=== PATIENT | female | born 1995 | race American Indian/Alaskan Native ===

== ENCOUNTER 2018-05-26 05:46 | Inpatient (IN) | payer MEDICAID ==
[2018-05-26] MEDS ORDERED: SUBLIMAZE IV ONE (07:41)
[2018-05-26] MEDS ORDERED: ZOFRAN IV ONE (07:41)
[2018-05-26] MEDS ORDERED: NORMODYNE IV ONE (07:43)
--- NOTE | 2018-05-26 07:49 | Emergency Department Report ---
HPI - General Chief Complaint: High BP Time Seen by Provider: 05/26/18 07:30 - HPI HPI: Room 24 The patient is a 23-year-old female presenting with a chief complaint of hypertension and headache. Patient is status post vaginal delivery 05/22/2018. Patient states her blood pressure has been elevated while in the hospital. The patient was discharged yesterday but given strong warnings to return should she develop headache or blurred vision. The patient states this morning at 03:50 she was awakened by diffuse headache. Patient states took Motrin but it did not help. The patient called her RESTAURANT KITCHEN MANAGER (My RESTAURANT KITCHEN MANAGER) and was advised to come to the hospital for evaluation. The patient gets her headache is score of 8/10. At the time of my exam the patient's blood pressure was 161/98. The patient states she's had swelling in both of her legs since she was 38 weeks . The patient is breast-feeding and has been made aware of the need to pump and dump after being administered narcotic pain medication Location: Head Duration: [See above] Quality: Pain Severity: 8/10 Modifying factors: [see above] Context: [see above] Mode of transportation: [not driving] ED Past Medical Hx - Past Medical History Previous Medical History?: Yes Hx Asthma: Yes (last attack 2months ago) - Surgical History Past Surgical History?: No - Family History Family history: no significant - Social History Smoking Status: Never Smoker Substance Use Type: None (denies illicit drug use) - Medications Home Medications: Home Medications Medication Instructions Recorded Confirmed Last Taken Type Docusate Sodium [Colace] 100 mg PO BID PRN #60 capsule 05/24/18 Unknown Rx Ferrous Sulfate [Feosol 325 MG tab] 325 mg PO BID #60 tablet 05/24/18 Unknown Rx Ibuprofen [Motrin 800 MG tab] 800 mg PO Q8HR PRN #30 tablet 05/25/18 Unknown Rx ED Review of Systems ROS: Stated complaint: HEADACHE BLURRED VISION Other details as noted in HPI Constitutional: no symptoms reported Eyes: denies: eye pain ENT: denies: throat pain Respiratory: no symptoms reported Cardiovascular: denies: chest pain Endocrine: no symptoms reported Gastrointestinal: denies: nausea, vomiting Genitourinary: denies: dysuria Musculoskeletal: denies: back pain Neurological: headache Physical Exam - Physical Exam Vital Signs: Vital Signs 05/26/18 06:02 Temperature 98.6 F Pulse Rate 86 Respiratory 16 Rate Blood Pressure 146/95 O2 Sat by Pulse 99 Oximetry Physical Exam: GENERAL: The patient is well-developed well-nourished female. [] HEENT: Normocephalic. Atraumatic. Extraocular motions are intact. Patient has moist mucous membranes. NECK: Supple. Trachea midline CHEST/LUNGS: Clear to auscultation. There is no respiratory distress noted. HEART/CARDIOVASCULAR: Regular. There is no tachycardia. There is no gallop rub or murmur. ABDOMEN: Abdomen is soft, nontender. Patient has normal bowel sounds. There is no abdominal distention. SKIN: There is no rash. There is 1+ bilateral lower extremity pitting edema. There is no diaphoresis. NEURO: The patient is awake, alert, and oriented. The patient is cooperative. The patient has no focal neurologic deficits. The patient has normal speech. Cranial nerves II through XII grossly intact, no drift MUSCULOSKELETAL:There is no evidence of acute injury. ED Course Vital Signs 05/26/18 06:02 Temperature 98.6 F Pulse Rate 86 Respiratory 16 Rate Blood Pressure 146/95 O2 Sat by Pulse 99 Oximetry - Consultations Consultation #1: 05/26/18 09:39 RESTAURANT KITCHEN MANAGER paged 05/26/18 09:50 Case discussed with Rose Phillips-Will admit patient to labor and delivery ED Medical Decision Making - Lab Data Result diagrams: 05/26/18 07:40 05/26/18 07:40 Laboratory Tests 05/26/18 05/26/18 05/26/18 07:40 07:40 08:27 WBC 13.2 H RBC 2.92 L Hgb 7.4 L Hct 22.4 L MCV 77 L MCH 25 L MCHC 33 RDW 16.0 H Plt Count 193 Lymph % (Auto) 14.4 [place] % (Auto) 7.6 H Eos % (Auto) 2.2 Baso % (Auto) 0.4 Lymph # 1.9 [place] # 1.0 H Eos # 0.3 Baso # 0.1 Seg Neutrophils % 75.4 H Seg Neutrophils # 9.9 H Sodium 142 Potassium 3.3 L Chloride 105.8 Carbon Dioxide 22 Anion Gap 18 BUN 5 L Creatinine 0.6 L Estimated GFR > 60 BUN/Creatinine Ratio 8 Glucose 73 Calcium 8.0 L Total Bilirubin 0.70 AST 23 ALT 12 Alkaline Phosphatase 156 H Total Protein 6.2 L Albumin 3.1 L Albumin/Globulin Ratio 1.0 Urine Color Straw Urine Turbidity Clear Urine pH 7.0 Ur Specific [place] 1.003 Urine Protein <15 mg/dl Urine Glucose (UA) Neg Urine Ketones Neg Urine Blood Lg Urine Nitrite Neg Urine Bilirubin Neg Urine Urobilinogen < 2.0 Ur Leukocyte Esterase Lg Urine WBC (Auto) 60.0 H Urine RBC (Auto) 46.0 U Epithel Cells (Auto) < 1.0 Urine Bacteria (Auto) 1+ Urine WBC Clumps 2+ Urine Mucus Few - Radiology Data Radiology results: report reviewed (CT head), image reviewed (CT head) [facility] [address] [place] [address] Cat Scan Report Signed Patient: ZACH HAGAN MR#: [id number] : 1995 Acct:[id number] Age/Sex: 23 / F ADM Date: 05/26/18 Loc: ED Attending Dr: Ordering Physician: GREG GAMEZ MD Date of Service: 05/26/18 Procedure(s): CT head/brain wo con Accession Number(s): [id number] cc: GREG GAMEZ MD FINAL REPORT EXAM: CT HEAD/BRAIN WO CON HISTORY: hypertension, headache TECHNIQUE: CT of the head was performed. No intravenous contrast was administered. PRIORS: None. FINDINGS: There is no evidence of intracranial hemorrhage. There is no edema, mass effect or midline shift. There are no abnormal extra-axial fluid collections. The ventricles are appropriate for brain volume. There is no skull fracture seen. The visualized aspects of the sinuses are clear. IMPRESSION: There is no acute intracranial abnormality identified. Transcribed By: LEEANNE Dictated By: ARSLAN RIVERS MD Electronically Authenticated By: ARSLAN RIVERS MD Signed Date/Time: 05/26/18904 DD/ 3 TD/TT: 05/26/18903 - Differential Diagnosis preeclampsia, ICH, hypertensive urgency Critical care attestation.: If time is entered above; I have spent that time in minutes in the direct care of this critically ill patient, excluding procedure time. ED Disposition Clinical Impression: Preeclampsia, Headache Disposition: -09 OP ADMIT IP TO THIS HOSP Is pt being admited?: Yes Does the pt Need Aspirin: No Condition: Fair Instructions: Hypertension (ED) Time of Disposition: 09:50
[2018-05-26] MEDS ORDERED: MAGNESIUM SULFATE 4GM/100ML 4 GM/100 ML BAG IV ONE (08:00)
[2018-05-26 08:08] LABS: Basophils # (Auto) 0.1 K/mm3 (0.0-0.1); Basophils % (Auto) 0.4 % (0.0-1.8); Eosinophils # (Auto) 0.3 K/mm3 (0.0-0.4); Eosinophils % (Auto) 2.2 % (0.0-4.3); Hematocrit 22.4 % (30.3-42.9); Hemoglobin 7.4 gm/dl (10.1-14.3); Lymphocytes # (Auto) 1.9 K/mm3 (1.2-5.4); Lymphocytes % (Auto) 14.4 % (13.4-35.0); Mean Corpuscular HGB Conc 33 % (30-34); Mean Corpuscular Volume 77 fl (79-97); Monocytes % (Auto) 7.6 % (0.0-7.3); Platelet Count 193 K/mm3 (140-440); Red Blood Count 2.92 M/mm3 (3.65-5.03)
[2018-05-26 08:19] LABS: Alanine Aminotransferase 12 units/L (7-56); Albumin 3.1 g/dL (3.9-5); BUN/Creatinine Ratio 8; Blood Urea Nitrogen 5 mg/dL (7-17); Hemolysis Index 18
--- NOTE | 2018-05-26 09:05 | Cat Scan Report ---
FINAL REPORT EXAM: CT HEAD/BRAIN WO CON HISTORY: hypertension, headache TECHNIQUE: CT of the head was performed. No intravenous contrast was administered. PRIORS: None. FINDINGS: There is no evidence of intracranial hemorrhage. There is no edema, mass effect or midline shift. There are no abnormal extra-axial fluid collections. The ventricles are appropriate for brain volume. There is no skull fracture seen. The visualized aspects of the sinuses are clear. IMPRESSION: There is no acute intracranial abnormality identified.
[2018-05-26 09:14] LABS: Bacteria,Urine 1+ /HPF (Negative); Bilirubin,Urine NEG (Negative); Blood,Urine LG (Negative); Color,Urine Straw (Yellow); Mucus,Urine FEW /HPF; Protein,Urine <15 mg/dL mg/dL (Negative); Urobilinogen,Urine < 2.0 mg/dL (<2.0)
[2018-05-26] MEDS ORDERED: COLACE PO PRN (10:09)
[2018-05-26] MEDS ORDERED: MAGNESIUM SULFATE 40GM/1000ML 40 GM/1,000 ML BAG IV SCH (11:00)
--- NOTE | 2018-05-26 12:12 | History and Physical Report ---
History of Present Illness Date of examination: 05/26/18 (pt admitted to [facility]) Date of admission: 05/26/18 10:09 History of present illness: The patient is a 23-year-old female presenting with a chief complaint of hypertension and headache. Patient is status post vaginal delivery 05/22/2018. Patient states her blood pressure has been elevated while in the hospital. The patient was discharged yesterday but given strong warnings to return should she develop headache or blurred vision. The patient states this morning at 03:50 she was awakened by diffuse headache. Patient states took Motrin but it did not help. The patient called her TEST OPERATOR (My TEST OPERATOR) and was advised to come to the hospital for evaluation. The patient gets her headache is score of 8/10. At the time of my exam the patient's blood pressure was 161/98. The patient states she's had swelling in both of her legs since she was 38 weeks . The patient is breast-feeding and has been made aware of the need to pump and dump after being administered narcotic pain medication As per ED physician Dr Hensley. Past History - Obstetrical History : 2 Medications and Allergies Allergies Allergy/AdvReac Type Severity Reaction Status Date / Time No Known Allergies Allergy Verified 05/21/18 16:54 Home Medications Medication Instructions Recorded Confirmed Last Taken Type Docusate Sodium [Colace] 100 mg PO BID PRN #60 capsule 05/24/18 Unknown Rx Ferrous Sulfate [Feosol 325 MG tab] 325 mg PO BID #60 tablet 05/24/18 Unknown Rx Ibuprofen [Motrin 800 MG tab] 800 mg PO Q8HR PRN #30 tablet 05/25/18 Unknown Rx Active Meds: Active Medications Acetaminophen (Tylenol) 650 mg PO Q4H PRN PRN Reason: Pain MILD(1-3)/Fever >100.5/MAYEN Docusate Sodium (Colace) 100 mg PO Q12H PRN PRN Reason: Constipation Lactated Ringer's (Lactated Ringers) 1,000 mls @ 125 mls/hr IV DIRECT KELLEY Magnesium Sulfate (Magnesium Sulfate 40gm/1000ml) 40 gm in 1,000 mls @ 50 mls/hr IV DIRECT KELLEY Multivitamins/Iron/Calcium ( Vitamin) 1 each PO QDAY KELLEY - Vital Signs Vital signs: Vital Signs Temp Pulse Resp BP Pulse Ox 98.6 F 86 16 146/95 99 05/26/18 06:02 05/26/18 06:02 05/26/18 06:02 05/26/18 06:02 05/26/18 06:02 Temp Pulse Resp BP Pulse Ox 98.2 F 76 18 138/84 98 05/26/18 11:50 05/26/18 11:57 05/26/18 09:57 05/26/18 11:57 05/26/18 09:57 - Physical Exam Breasts: Positive: normal Cardiovascular: Regular rate, Normal S1, Normal S2 Lungs: Positive: Clear to auscultation, Normal air movement Abdomen: Positive: normal appearance, soft, normal bowel sounds. Negative: distention, tenderness Genitourinary (Female): Positive: normal external genitalia, normal perenium Vulva: both: normal, laceration/episiotomy (swelling intact) Vagina: Positive: normal moisture. Negative: discharge Cervix: Negative: lesion, discharge Uterus: Positive: normal size, normal contour Adnexa: both: normal Anus/Rectum: Positive: normal perianal skin, heme negative. Negative: rectal mass, hemorrhoids Extremities: Positive: edema Deep Tendon Reflex Grade: Normal but brisk +3 Results Result Diagrams: 05/26/18 07:40 05/26/18 07:40 Abnormal lab results 05/26/18 05/26/18 05/26/18 Range/Units 07:40 07:40 08:27 WBC 13.2 H (4.5-11.0) K/mm3 RBC 2.92 L (3.65-5.03) M/mm3 Hgb 7.4 L (10.1-14.3) gm/dl Hct 22.4 L (30.3-42.9) % MCV 77 L (79-97) fl MCH 25 L (28-32) pg RDW 16.0 H (13.2-15.2) % [place] % (Auto) 7.6 H (0.0-7.3) % [place] # 1.0 H (0.0-0.8) K/mm3 Seg Neutrophils % 75.4 H (40.0-70.0) % Seg Neutrophils # 9.9 H (1.8-7.7) K/mm3 Potassium 3.3 L (3.6-5.0) mmol/L BUN 5 L (7-17) mg/dL Creatinine 0.6 L (0.7-1.2) mg/dL Calcium 8.0 L (8.4-10.2) mg/dL Alkaline Phosphatase 156 H (35-129) units/L Total Protein 6.2 L (6.3-8.2) g/dL Albumin 3.1 L (3.9-5) g/dL Urine WBC (Auto) 60.0 H (0.0-6.0) /HPF All other labs normal. Assessment and Plan 23yo 4 days PP with PreE Received 4gm bolus MGSO4 in ED Started on MGSO4 2gm/hr here in L&D for 24hr. Orders in EMR. - Patient Problems (1) Preeclampsia Onset Date: ~05/26/18 Current Visit: Yes Status: Acute Plan to address problem: Pt transferred from ED to LDR 5 for 24hr MGSO4 therapy PP . BP now 134/87, MAYEN is better but has not gone away DTRs 3+ brisk No clonus. Explained to pt @ PreE and why we use the MGSO4 All questions addressed. aware. Family is caring for NB at this time. Will provide and teach how to use breast pump.
[2018-05-26] MEDS: LACTATED RINGERS 1,000 ML IV SCH ×2 (12:13→23:45)
[2018-05-26] MEDS: TYLENOL PO PRN ×2 (14:00→19:51)
[2018-05-27] MEDS: TYLENOL PO PRN ×3 (01:07→08:10)
--- NOTE | 2018-05-27 07:52 | Progress Note ---
Assessment and Plan - Patient Problems (1) Preeclampsia Onset Date: ~05/26/18 Current Visit: Yes Status: Acute Plan to address problem: Pt in good spirits this AM No c/o, blurred vision, chest pain. Pt is requesting Tylenol for MAYEN @ this time. MGSO4 completed X 24hours Will start labetalol 200mg po BID Pt aware of POC and agrees will RTO Monday for a BP check. BPs have been normotensive with a few diastolics of 90. consulted Subjective - Subjective Date of service: 05/27/18 (consulted with Dr Frey) Principal diagnosis: PP readmit PreE MGSO4 complete Start Labetalol Interval history: The patient is a 23-year-old female presenting with a chief complaint of hypertension and headache. Patient is status post vaginal delivery 05/22/2018. Patient states her blood pressure has been elevated while in the hospital. The patient was discharged yesterday but given strong warnings to return should she develop headache or blurred vision. The patient states this morning at 03:50 she was awakened by diffuse headache. Patient states took Motrin but it did not help. The patient called her PORTABLE MACHINE CUTTER (My PORTABLE MACHINE CUTTER) and was advised to come to the hospital for evaluation. The patient gets her headache is score of 8/10. At the time of my exam the patient's blood pressure was 161/98. The patient states she's had swelling in both of her legs since she was 38 weeks . The patient is breast-feeding and has been made aware of the need to pump and dump after being administered narcotic pain medication As per ED physician Dr Hensley. Patient reports: appetite normal, voiding normally, pain well controlled, ambulating normally Objective - Vital Signs Latest vital signs: Vital Signs Temp Pulse Resp BP BP Pulse Ox 05/27/18 07:23 99 H 97 05/27/18 07:18 89 97 05/27/18 07:13 86 97 05/27/18 07:08 87 97 05/27/18 07:03 98 H 98 05/27/18 06:58 95 H 98 05/27/18 06:57 93 H 120/76 05/27/18 06:53 93 H 97 05/27/18 06:48 93 H 97 05/27/18 06:43 89 98 02/17/19 06:38 86 98 05/27/18 06:33 88 98 05/27/18 06:28 87 99 05/27/18 06:23 89 99 05/27/18 06:18 103 H 99 05/27/18 06:05 111 H 99 05/27/18 06:00 89 97 05/27/18 05:58 18 05/27/18 05:57 100 H 139/88 05/27/18 05:55 98 H 98 05/27/18 05:50 97 H 97 05/27/18 05:45 88 98 05/27/18 05:40 86 99 05/27/18 05:35 82 99 05/27/18 05:30 91 H 99 05/27/18 05:25 89 99 05/27/18 05:20 87 99 05/27/18 05:15 112 H 97 05/27/18 05:10 86 99 05/27/18 05:05 86 99 05/27/18 05:00 113 H 100 05/27/18 04:58 18 05/27/18 04:57 89 138/84 05/27/18 04:55 82 98 05/27/18 04:50 86 98 05/27/18 04:45 98 H 100 05/27/18 04:32 92 H 98 05/27/18 04:27 90 98 05/27/18 04:22 90 98 05/27/18 04:17 90 98 05/27/18 04:12 89 98 05/27/18 04:07 91 H 97 05/27/18 04:02 84 98 05/27/18 03:57 85 127/79 98 05/27/18 03:52 82 99 05/27/18 03:47 84 99 05/27/18 03:42 84 99 05/27/18 03:37 86 100 05/27/18 03:32 96 H 100 05/27/18 03:19 101 H 88 05/27/18 03:18 100 H 93 05/27/18 03:13 98 H 97 05/27/18 03:08 91 H 97 05/27/18 03:03 87 97 05/27/18 02:58 97 H 98 05/27/18 02:57 97 H 134/84 05/27/18 02:53 99 H 96 05/27/18 02:48 92 H 97 05/27/18 02:43 90 98 05/27/18 02:38 89 98 05/27/18 02:33 85 98 05/27/18 02:28 86 98 05/27/18 02:23 85 98 05/27/18 02:18 81 99 05/27/18 02:13 84 99 05/27/18 02:08 89 99 05/27/18 02:07 18 05/27/18 01:57 85 134/83 05/27/18 01:55 89 100 05/27/18 01:50 83 100 05/27/18 01:45 98 H 98 05/27/18 01:40 90 99 05/27/18 01:35 85 100 05/27/18 01:30 102 H 100 05/27/18 01:25 107 H 99 05/27/18 01:20 86 100 05/27/18 01:15 99 H 100 05/27/18 01:10 89 100 05/27/18 01:07 18 05/27/18 01:05 84 100 05/27/18 01:02 97 H 142/87 05/27/18 01:00 96 H 100 05/27/18 00:50 104 H 94 05/27/18 00:47 88 99 05/27/18 00:42 83 98 05/27/18 00:37 85 99 05/27/18 00:32 83 98 05/27/18 00:27 86 99 05/27/18 00:22 81 98 05/27/18 00:17 80 99 05/27/18 00:12 75 98 05/27/18 00:07 82 98 05/27/18 00:02 75 98 05/26/18 23:58 77 158/102 05/26/18 23:57 79 99 05/26/18 23:52 91 H 98 05/26/18 23:33 87 95 05/26/18 23:28 76 96 05/26/18 23:23 77 97 05/26/18 23:18 76 97 05/26/18 23:13 77 97 05/26/18 23:08 75 97 05/26/18 23:03 75 98 05/26/18 22:58 75 98 05/26/18 22:57 74 137/92 05/26/18 22:53 76 98 05/26/18 22:48 77 99 05/26/18 22:43 91 H 98 05/26/18 22:38 76 100 05/26/18 22:33 78 98 05/26/18 22:28 82 99 05/26/18 22:23 81 100 05/26/18 22:18 76 99 05/26/18 22:13 81 99 05/26/18 22:08 78 100 05/26/18 22:03 74 100 05/26/18 21:58 88 139/96 98 05/26/18 21:47 113 H 100 05/26/18 21:42 81 100 05/26/18 21:37 78 100 05/26/18 21:32 86 98 05/26/18 21:27 77 100 05/26/18 21:22 79 100 05/26/18 21:17 100 H 100 05/26/18 21:12 76 100 05/26/18 21:07 90 100 05/26/18 21:02 77 100 05/26/18 20:58 82 124/77 05/26/18 20:57 86 100 05/26/18 20:53 91 H 134/98 05/26/18 20:52 89 99 05/26/18 20:06 77 100 05/26/18 20:01 80 100 05/26/18 19:58 97.9 F 89 18 135/84 05/26/18 19:57 89 135/84 05/26/18 19:51 18 05/26/18 18:57 80 141/97 05/26/18 18:06 82 138/94 05/26/18 17:57 82 135/87 05/26/18 17:30 98.0 F 05/26/18 16:57 75 137/84 05/26/18 15:58 85 127/80 05/26/18 14:57 75 127/85 05/26/18 13:58 90 138/96 05/26/18 12:58 75 150/91 05/26/18 11:57 76 138/84 05/26/18 11:50 98.2 F 05/26/18 09:57 96 H 18 118/78 98 05/26/18 09:16 134/87 98 05/26/18 09:05 17 100 05/26/18 08:00 161/98 99 Intake and Output 05/26/18 05/27/18 05/27/18 22:59 06:59 14:59 Intake Total 865 Output Total 1400 3000 Balance -1400 -2135 Intake: IV 865 Lactated Ringers 1,000 ml 865 @ 125 mls/hr IV DIRECT KELLEY Rx#:[id number] Output: Urine 1400 3000 Indwelling Catheter 1400 3000 Other: Total, Output Amount 600 700 # Voids Indwelling Catheter 1 - Exam Breasts: Present: normal Cardiovascular: Present: Regular rate Lungs: Present: Clear to auscultation Abdomen: Present: normal appearance, soft Extremities: Present: normal Deep Tendon Reflex Grade: Normal +2 Incision: Present: normal, dry, intact - Labs Labs: Abnormal lab results 05/26/18 05/26/18 05/26/18 Range/Units 07:40 07:40 08:27 WBC 13.2 H (4.5-11.0) K/mm3 RBC 2.92 L (3.65-5.03) M/mm3 Hgb 7.4 L (10.1-14.3) gm/dl Hct 22.4 L (30.3-42.9) % MCV 77 L (79-97) fl MCH 25 L (28-32) pg RDW 16.0 H (13.2-15.2) % [place] % (Auto) 7.6 H (0.0-7.3) % [place] # 1.0 H (0.0-0.8) K/mm3 Seg Neutrophils % 75.4 H (40.0-70.0) % Seg Neutrophils # 9.9 H (1.8-7.7) K/mm3 Potassium 3.3 L (3.6-5.0) mmol/L BUN 5 L (7-17) mg/dL Creatinine 0.6 L (0.7-1.2) mg/dL Calcium 8.0 L (8.4-10.2) mg/dL Magnesium (1.7-2.3) mg/dL Alkaline Phosphatase 156 H (35-129) units/L Total Protein 6.2 L (6.3-8.2) g/dL Albumin 3.1 L (3.9-5) g/dL Urine WBC (Auto) 60.0 H (0.0-6.0) /HPF 05/26/18 05/26/1805/27/19 Range/Units 13:56 19:55 01:23 WBC (4.5-11.0) K/mm3 RBC (3.65-5.03) M/mm3 Hgb (10.1-14.3) gm/dl Hct (30.3-42.9) % MCV (79-97) fl MCH (28-32) pg RDW (13.2-15.2) % [place] % (Auto) (0.0-7.3) % [place] # (0.0-0.8) K/mm3 Seg Neutrophils % (40.0-70.0) % Seg Neutrophils # (1.8-7.7) K/mm3 Potassium (3.6-5.0) mmol/L BUN (7-17) mg/dL Creatinine (0.7-1.2) mg/dL Calcium (8.4-10.2) mg/dL Magnesium 3.80 H 5.30 H 5.90 H (1.7-2.3) mg/dL Alkaline Phosphatase (35-129) units/L Total Protein (6.3-8.2) g/dL Albumin (3.9-5) g/dL Urine WBC (Auto) (0.0-6.0) /HPF
[2018-05-27] MEDS ORDERED: NORMODYNE PO SCH ×2 (08:00→10:00)
--- NOTE | 2018-05-27 09:53 | Event Note ---
Date: 05/27/18 (pt states MAYEN is lingering) Went in to speak with pt @ MAYEN She did tell me that she was dx with migraines prior to . Will try Fioricet when she can have next medication. Pt agrees with plan
[2018-05-27] MEDS ORDERED: FIORICET PO PRN (09:54)
[2018-05-27] MEDS ORDERED: PRENATAL VITAMIN PO SCH (10:00)
[2018-05-27 13:58] VITALS: BP 134/76
--- NOTE | 2018-05-27 14:05 | Discharge Summary ---
Providers - Providers Date of Admission: 05/26/18 10:09 Date of discharge: 05/27/18 (pt agrees with d/c) Attending physician: MI CARSON Primary care physician: PRATIK PEARCE MD Hospitalization Condition: Good Hospital course: Elevated BP PreE MGSO4 X 24 hours Started on Labetalol 200mg po BID Disposition: DC-01 TO HOME OR SELFCARE - Discharge Diagnoses (1) Preeclampsia Status: Acute Comment: Continue Labetalol 200 mg po BID RX provided RTO Monday05-30-18 @ 0945 for BP check Core Measure Documentation - Palliative Care Palliative Care/ Comfort Measures: Not Applicable - Core Measures Any of the following diagnoses?: none - VTE Discharge Requirements Deep Vein Thrombosis/Pulmonary Embolism Present on Admission: No Has pt received <5 days of overlap therapy or INR<2.0: No Anticoagulant overlap therapy prescribed at discharge: No Contraindication No Overlap Therapy order at DC: Not Indicated - Acute CT Discharge Requirements Aspirin at discharge: No Reason for no aspirin on DC: Medical contraindication LIBRA/ARB for LVSD if EF <40%: Not Applicable Reason for no LIBRA/ARB: Medical contraindication Beta boris at discharge: No Reason for no beta boris on DC: Medical contraindication Statin for LDL = or >100 mg/dl on DC: Not Applicable Reason for no statin on DC: Medical contraindication - Heart Failure Discharge Requirements LIBRA/ARB for LVSD if EF <40%: Not Applicable Reason for no LIBRA/ARB: Medical contraindication Beta boris at discharge: No Reason for no beta boris on DC: Medical contraindication - Stroke Discharge Requirements Statin for LDL = or >70 mg/dl on DC: Not Applicable Reason for no statin on DC: Not Indicated Anticoag for atrial fib/atrial flutter: Not Applicable Reason for no anticoag for AF/F on DC: Not Indicated Antithrombotic for ischemic stroke: No Reason for no antithrombotic on DC: Not Indicated Exam - Constitutional Vitals: Temp Pulse Resp BP Pulse Ox 98.1 F 90 18 134/76 97 05/27/18 07:49 05/27/18 13:57 05/27/18 13:06 05/27/18 13:57 05/27/18 07:23 General appearance: Present: no acute distress, well-nourished - EENT Eyes: Present: PERRL ENT: hearing intact, clear oral mucosa - Neck Neck: Present: supple, normal ROM - Respiratory Respiratory effort: normal Respiratory: bilateral: CTA - Cardiovascular Heart Sounds: Present: S1 & S2. Absent: rub, click - Extremities Extremities: pulses symmetrical, No edema Peripheral Pulses: within normal limits - Abdominal General gastrointestinal: Present: soft, non-tender, non-distended, normal bowel sounds Female genitourinary: Present: normal - Integumentary Integumentary: Present: clear, warm, dry - Musculoskeletal Musculoskeletal: gait normal, strength equal bilaterally - Psychiatric Psychiatric: appropriate mood/affect, intact judgment & insight - Neurologic Neurologic: CNII-XII intact, moves all extremities Plan Activity: advance as tolerated Weight Bearing Status: Weight Bear as Tolerated Diet: low salt Special Instructions: no heavy lifting Follow up with: PRATIK PEARCE MD [Primary Care Provider] - 7 Days (Follow up with Pratik Hicks if migraines persist) MARIAH CESPEDES CNM [Advanced Practice Nurse] - 05/30/18 9:45 am (Please keep appointment as scheduled for Monday at 9;45AM in the [place] office. Take medications as prescribed. Labetalol 200mg 2 times a day. Call with headaches unresolved with medication, blurred vision, chest pain. Remember to stay well hydrated, rest, lift nothing heavier than the baby. Call [phone] with any concerns.) Prescriptions: Butalb/Acetamin/Caff 50-325-40 [Fioricet] 1 each PO Q4H PRN #20 tablet PRN Reason: Headache Labetalol [Normodyne TAB] 200 mg PO BID #60 tablet
== END 2018-05-27 15:35 | disposition home or self-care (01) | DRG 776 ==
LOC: ED 05:46 → LD 10:09
PROVIDERS: ADMIT Obstetrics & Gynecology; ATTEND Obstetrics & Gynecology
DX: O14.95 Unspecified pre-eclampsia, complicating the puerperium (principal); O99.355 Diseases of the nervous system complicating the puerperium; Z79.899 Other long term (current) drug therapy; R51 Headache
CPT/HCPCS: 36415; 70450; 80053; 81001; 83735; 85025; 96360; 96361; 96365; 96366; 96374; 96375; G0378; J2405; J3010; J3475; J7120

== ENCOUNTER 2020-04-19 20:59 | Emergency (ER) | payer OTHER ==
[2020-04-19 21:17] VITALS: BP 132/88
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
== END 2020-04-20 00:02 | disposition home or self-care (01) ==
LOC: ED 20:59
DX: M79.605 Pain in left leg (principal); G43.909 Migraine, unspecified, not intractable, without status migrainosus; J45.909 Unspecified asthma, uncomplicated; Z79.899 Other long term (current) drug therapy; V89.2XXA Person injured in unspecified motor-vehicle accident, traffic, initial encounter; Y92.410 Unspecified street and highway as the place of occurrence of the external cause; Y93.89 Activity, other specified; Y99.8 Other external cause status

== ENCOUNTER 2020-06-22 04:21 | Emergency (ER) | payer SELFPAY ==
[2020-06-22] MEDS ORDERED: ONDANSETRON 4 MG ODT TAB PO ONE (05:25)
[2020-06-22] MEDS ORDERED: ONDANSETRON 4 MG/2 ML INJ IM ONE (05:34)
--- NOTE | 2020-06-22 05:51 | Event Note ---
ED Screening Note Date of service: 06/22/20 Time: 05:50 ED Screening Note: 25-year-old -German female presents to the emergency room complaining of bilateral lower abdominal pain in the pelvic area stating 10 out of 10 that started yesterday and pain is increased tonight. Patient reports nausea and vomiting. Last menstrual period 05/24/2020. This initial assessment/diagnostic orders/clinical plan/treatment(s) is/are subject to change based on patients health status, clinical progression and re- assessment by fellow clinical providers in the ED. Further treatment and workup at subsequent clinical providers discretion. Patient/guardian urged not to elope from the ED as their condition may be serious if not clinically assessed and managed. Initial orders include:
[2020-06-22 06:26] LABS: Basophils % (Auto) 0.3 % (0.0-1.8); Hematocrit 37.2 % (30.3-42.9); Hemoglobin 12.1 gm/dl (10.1-14.3); Lymphocytes % (Auto) 8.7 % (13.4-35.0); Mean Corpuscular HGB Conc 33 % (30-34); Mean Corpuscular Volume 76 fl (79-97); Monocytes # (Auto) 0.5 K/mm3 (0.0-0.8); Monocytes % (Auto) 3.9 % (0.0-7.3); Platelet Count 275 K/mm3 (140-440); Red Blood Count 4.91 M/mm3 (3.65-5.03); Red Cell Distribution Width 16.1 % (13.2-15.2)
[2020-06-22 07:43] LABS: Bilirubin,Urine NEG (Negative); Blood,Urine MOD (Negative); Color,Urine Yellow (Yellow); Mucus,Urine 1+ /HPF
[2020-06-22] MEDS ORDERED: MORPHINE 4 MG/1 ML INJ IV ONE (07:47)
[2020-06-22] MEDS ORDERED: ONDANSETRON 4 MG/2 ML INJ IV ONE (07:47)
[2020-06-22] MEDS ORDERED: SODIUM CHLORIDE 0.9% 1000 ML 1,000 ML IV ONE (07:47)
[2020-06-22 07:55] LABS: Alanine Aminotransferase 10 units/L (7-56); Albumin 4.4 g/dL (3.9-5); BUN/Creatinine Ratio 13; Blood Urea Nitrogen 10 mg/dL (7-17); Hemolysis Index 1
[2020-06-22 07:55] LABS: Amphetamine Screen,Urine Negative; Benzodiazepines Screen,Urine Negative; Cocaine Screen,Urine Negative; Methadone Screen,Urine Negative; Opiate Screen,Urine Negative
[2020-06-22 07:58] LABS: HCG Qualitative,Urine Negative (Negative)
[2020-06-22] MEDS ORDERED: METOCLOPRAMIDE 10 MG/2 ML INJ IV ONE (08:01)
[2020-06-22 08:25] LABS: Cannabinoid Screen,Urine PRESUMPTIVE POSITIVE
--- NOTE | 2020-06-22 08:55 | Emergency Department Report ---
ED Abdominal Pain HPI - General Chief Complaint: Abdominal Pain Stated Complaint: ABD PAIN/VAG BLEED Time Seen by Provider: 06/22/20 07:21 Source: patient, EMS Mode of arrival: Ambulatory Limitations: No Limitations - History of Present Illness Initial Comments: This is a 25-year-old female nontoxic, well nourished in appearance, no acute signs of distress presents to the ED with c/o of nausea and vomiting and abdominal/pelvic pain several days. Patient stated that she started her menstrual cycle yesterday. Patient describes vomiting as food content and yellow gastric acid. Patient describes abdominal and pelvic pain as cramping and aching with level of 8/10 diffuse. Patient denies chest pain, short of breath, fever, hemoptysis, blood in stool, chills, headache, stiff neck, numbness or tingling. Patient denies any diarrhea or constipation. Denies any blood in stool. Patient denies any recent travels. Patient denies any vaginal discharge. Denies any urinary symptoms. Patient denies any drug allergies or significant past medical history. MD Complaint: abdominal pain -: days(s) Location: diffuse Radiation: none Migration to: no migration Severity: mild Severity scale (0 -10): 8 Quality: cramping, aching Consistency: constant Improves With: nothing Worsens With: nothing Associated Symptoms: nausea, vomiting. denies: diarrhea, fever, chills, constipation, dysuria, hematemesis, hematochezia, melena, hematuria, anorexia, syncope - Related Data Previous Rx's Medication Instructions Recorded Last Taken Type Docusate Sodium [Colace] 100 mg PO BID PRN #60 capsule 05/24/18 Unknown Rx Ferrous Sulfate [Feosol 325 MG tab] 325 mg PO BID #60 tablet 05/24/18 Unknown Rx Ibuprofen [Motrin 800 MG tab] 800 mg PO Q8HR PRN #30 tablet 05/25/18 Unknown Rx Butalb/Acetamin/Caff 50-325-40 1 each PO Q4H PRN #20 tablet 05/27/18 Unknown Rx [Fioricet] labetaloL [Labetalol 200mg TAB] 200 mg PO BID #60 tablet 05/27/18 Unknown Rx Naproxen [EC-Naprosyn] 500 mg PO BID PRN #14 04/19/20 Unknown Rx Naproxen 500 mg PO Q12H PRN #12 tablet 06/22/20 Unknown Rx Ondansetron [Zofran Odt] 4 mg PO Q8HR PRN #12 tab.rapdis 06/22/20 Unknown Rx Allergies Allergy/AdvReac Type Severity Reaction Status Date / Time No Known Allergies Allergy Verified 05/21/18 16:54 ED Review of Systems ROS: Stated complaint: ABD PAIN/VAG BLEED Other details as noted in HPI Constitutional: denies: chills, fever Eyes: denies: eye pain, eye discharge, vision change ENT: denies: ear pain, throat pain Respiratory: denies: cough, shortness of breath, wheezing Cardiovascular: denies: chest pain, palpitations Endocrine: no symptoms reported Gastrointestinal: abdominal pain, nausea, vomiting. denies: diarrhea, constipation, hematemesis, melena, hematochezia Genitourinary: abnormal menses. denies: urgency, dysuria, discharge Musculoskeletal: denies: back pain, joint swelling, arthralgia Skin: denies: rash, lesions Neurological: denies: headache, weakness, paresthesias Psychiatric: denies: anxiety, depression Hematological/Lymphatic: denies: easy bleeding, easy bruising ED Past Medical Hx - Past Medical History Previous Medical History?: Yes Hx Hypertension: No Hx Congestive Heart Failure: No Hx Diabetes: No Hx Deep Vein Thrombosis: No Hx Renal Disease: No Hx Sickle Cell Disease: No Hx Headaches / Migraines: Yes Hx Seizures: No Hx Asthma: Yes (\) Hx COPD: No Hx HIV: No Additional medical history: preeclampsia with preg. Ovarian Cyst - Surgical History Past Surgical History?: No - Social History Smoking Status: Never Smoker - Medications Home Medications: Home Medications Medication Instructions Recorded Confirmed Last Taken Type Docusate Sodium [Colace] 100 mg PO BID PRN #60 capsule 05/24/18 Unknown Rx Ferrous Sulfate [Feosol 325 MG tab] 325 mg PO BID #60 tablet 05/24/18 Unknown Rx Ibuprofen [Motrin 800 MG tab] 800 mg PO Q8HR PRN #30 tablet 05/25/18 Unknown Rx Butalb/Acetamin/Caff 50-325-40 1 each PO Q4H PRN #20 tablet 05/27/18 Unknown Rx [Fioricet] labetaloL [Labetalol 200mg TAB] 200 mg PO BID #60 tablet 05/27/18 Unknown Rx Naproxen [EC-Naprosyn] 500 mg PO BID PRN #14 tablet. 04/19/20 Unknown Rx Naproxen 500 mg PO Q12H PRN #12 tablet 06/22/20 Unknown Rx Ondansetron [Zofran Odt] 4 mg PO Q8HR PRN #12 tab.rapdis 06/22/20 Unknown Rx ED Physical Exam - General Limitations: No Limitations General appearance: alert, in no apparent distress - Head Head exam: Present: atraumatic, normocephalic - Eye Eye exam: Present: normal appearance - Neck Neck exam: Present: normal inspection, full ROM. Absent: tenderness, meningismus, lymphadenopathy - Respiratory Respiratory exam: Present: normal lung sounds bilaterally. Absent: respiratory distress, wheezes, rales, rhonchi, stridor, chest wall tenderness, accessory muscle use, decreased breath sounds, prolonged expiratory - Cardiovascular Cardiovascular Exam: Present: regular rate, normal rhythm, normal heart sounds. Absent: bradycardia, tachycardia, irregular rhythm, systolic murmur, diastolic murmur, rubs, gallop - GI/Abdominal GI/Abdominal exam: Present: soft, tenderness (Bilateral lower abdomen), normal bowel sounds. Absent: distended, guarding, rebound, rigid, diminished bowel sounds - Extremities Exam Extremities exam: Present: normal inspection, full ROM - Back Exam Back exam: Present: normal inspection, full ROM. Absent: tenderness, CVA tenderness (R), CVA tenderness (L), muscle spasm, paraspinal tenderness, vertebral tenderness, rash noted - Neurological Exam Neurological exam: Present: alert, oriented X3, normal gait - Psychiatric Psychiatric exam: Present: normal affect, normal mood - Skin Skin exam: Present: warm, dry, intact, normal color. Absent: rash ED Course Vital Signs 06/22/20 05:12 Temperature 97.8 F Pulse Rate 65 Respiratory 20 Rate Blood Pressure 129/80 O2 Sat by Pulse 99 Oximetry - Reevaluation(s) Reevaluation #1: 06/22/20 08:55 Patient is speaking in full sentences with no signs of distress noted. ED Medical Decision Making - Lab Data Result diagrams: 06/22/20 05:46 06/22/20 05:46 Lab Results 06/22/20 06/22/20 06/22/20 Range/Units 05:46 05:46 05:46 WBC 11.8 H (4.5-11.0) K/mm3 RBC 4.91 (3.65-5.03) M/mm3 Hgb 12.1 (10.1-14.3) gm/dl Hct 37.2 (30.3-42.9) % MCV 76 L (79-97) fl MCH 25 L (28-32) pg MCHC 33 (30-34) % RDW 16.1 H (13.2-15.2) % Plt Count 275 (140-440) K/mm3 Lymph % (Auto) 8.7 L (13.4-35.0) % [place] % (Auto) 3.9 (0.0-7.3) % Eos % (Auto) 0.0 (0.0-4.3) % Baso % (Auto) 0.3 (0.0-1.8) % Lymph # (Auto) 1.0 L (1.2-5.4) K/mm3 [place] # (Auto) 0.5 (0.0-0.8) K/mm3 Eos # (Auto) 0.0 (0.0-0.4) K/mm3 Baso # (Auto) 0.0 (0.0-0.1) K/mm3 Seg Neutrophils % 87.1 H (40.0-70.0) % Seg Neutrophils # 10.3 H (1.8-7.7) K/mm3 Sodium 140 (137-145) mmol/L Potassium 3.9 (3.6-5.0) mmol/L Chloride 105.0 (98-107) mmol/L Carbon Dioxide 26 (22-30) mmol/L Anion Gap 13 mmol/L BUN 10 (7-17) mg/dL Creatinine 0.8 (0.6-1.2) mg/dL Estimated GFR > 60 ml/min BUN/Creatinine Ratio 13 % Glucose 164 H (65-100) mg/dL Calcium 9.0 (8.4-10.2) mg/dL Total Bilirubin 0.40 (0.1-1.2) mg/dL AST 15 (5-40) units/L ALT 10 (7-56) units/L Alkaline Phosphatase 36 (35-129) units/L Total Protein 7.5 (6.3-8.2) g/dL Albumin 4.4 (3.9-5) g/dL Albumin/Globulin Ratio 1.4 % Lipase (13-60) units/L HCG, Quant < 2 (0-4) mIU/mL Urine Color (Yellow) Urine Turbidity (Clear) Urine pH (5.0-7.0) Ur Specific [place] (1.003-1.030) Urine Protein (Negative) mg/dL Urine Glucose (UA) (Negative) mg/dL Urine Ketones (Negative) mg/dL Urine Blood (Negative) Urine Nitrite (Negative) Urine Bilirubin (Negative) Urine Urobilinogen (<2.0) mg/dL Ur Leukocyte Esterase (Negative) Urine WBC (Auto) (0.0-6.0) /HPF Urine RBC (Auto) (0.0-6.0) /HPF U Epithel Cells (Auto) (0-13.0) /HPF Urine Mucus /HPF Urine HCG, Qual (Negative) Urine Opiates Screen Urine Methadone Screen Ur Barbiturates Screen Ur Phencyclidine Scrn Ur Amphetamines Screen U Benzodiazepines Scrn Urine Cocaine Screen U Marijuana (THC) Screen Drugs of Abuse Note Blood Type 06/22/20 06/22/20 06/22/20 Range/Units 07:25 07:33 07:34 WBC (4.5-11.0) K/mm3 RBC (3.65-5.03) M/mm3 Hgb (10.1-14.3) gm/dl Hct (30.3-42.9) % MCV (79-97) fl MCH (28-32) pg MCHC (30-34) % RDW (13.2-15.2) % Plt Count (140-440) K/mm3 Lymph % (Auto) (13.4-35.0) % [place] % (Auto) (0.0-7.3) % Eos % (Auto) (0.0-4.3) % Baso % (Auto) (0.0-1.8) % Lymph # (Auto) (1.2-5.4) K/mm3 [place] # (Auto) (0.0-0.8) K/mm3 Eos # (Auto) (0.0-0.4) K/mm3 Baso # (Auto) (0.0-0.1) K/mm3 Seg Neutrophils % (40.0-70.0) % Seg Neutrophils # (1.8-7.7) K/mm3 Sodium (137-145) mmol/L Potassium (3.6-5.0) mmol/L Chloride (98-107) mmol/L Carbon Dioxide (22-30) mmol/L Anion Gap mmol/L BUN (7-17) mg/dL Creatinine (0.6-1.2) mg/dL Estimated GFR ml/min BUN/Creatinine Ratio % Glucose (65-100) mg/dL Calcium (8.4-10.2) mg/dL Total Bilirubin (0.1-1.2) mg/dL AST (5-40) units/L ALT (7-56) units/L Alkaline Phosphatase (35-129) units/L Total Protein (6.3-8.2) g/dL Albumin (3.9-5) g/dL Albumin/Globulin Ratio % Lipase 32 (13-60) units/L HCG, Quant (0-4) mIU/mL Urine Color (Yellow) Urine Turbidity (Clear) Urine pH (5.0-7.0) Ur Specific [place] (1.003-1.030) Urine Protein (Negative) mg/dL Urine Glucose (UA) (Negative) mg/dL Urine Ketones (Negative) mg/dL Urine Blood (Negative) Urine Nitrite (Negative) Urine Bilirubin (Negative) Urine Urobilinogen (<2.0) mg/dL Ur Leukocyte Esterase (Negative) Urine WBC (Auto) (0.0-6.0) /HPF Urine RBC (Auto) (0.0-6.0) /HPF U Epithel Cells (Auto) (0-13.0) /HPF Urine Mucus /HPF Urine HCG, Qual (Negative) Urine Opiates Screen Negative Urine Methadone Screen Negative Ur Barbiturates Screen Negative Ur Phencyclidine Scrn Negative Ur Amphetamines Screen Negative U Benzodiazepines Scrn Negative Urine Cocaine Screen Negative U Marijuana (THC) Screen Presumptive positive Drugs of Abuse Note Disclamer Blood Type A POSITIVE 06/22/20 06/22/20 Range/Units Unknown Unknown WBC (4.5-11.0) K/mm3 RBC (3.65-5.03) M/mm3 Hgb (10.1-14.3) gm/dl Hct (30.3-42.9) % MCV (79-97) fl MCH (28-32) pg MCHC (30-34) % RDW (13.2-15.2) % Plt Count (140-440) K/mm3 Lymph % (Auto) (13.4-35.0) % [place] % (Auto) (0.0-7.3) % Eos % (Auto) (0.0-4.3) % Baso % (Auto) (0.0-1.8) % Lymph # (Auto) (1.2-5.4) K/mm3 [place] # (Auto) (0.0-0.8) K/mm3 Eos # (Auto) (0.0-0.4) K/mm3 Baso # (Auto) (0.0-0.1) K/mm3 Seg Neutrophils % (40.0-70.0) % Seg Neutrophils # (1.8-7.7) K/mm3 Sodium (137-145) mmol/L Potassium (3.6-5.0) mmol/L Chloride (98-107) mmol/L Carbon Dioxide (22-30) mmol/L Anion Gap mmol/L BUN (7-17) mg/dL Creatinine (0.6-1.2) mg/dL Estimated GFR ml/min BUN/Creatinine Ratio % Glucose (65-100) mg/dL Calcium (8.4-10.2) mg/dL Total Bilirubin (0.1-1.2) mg/dL AST (5-40) units/L ALT (7-56) units/L Alkaline Phosphatase (35-129) units/L Total Protein (6.3-8.2) g/dL Albumin (3.9-5) g/dL Albumin/Globulin Ratio % Lipase (13-60) units/L HCG, Quant (0-4) mIU/mL Urine Color Yellow (Yellow) Urine Turbidity Clear (Clear) Urine pH 7.0 (5.0-7.0) Ur Specific [place] 1.027 (1.003-1.030) Urine Protein 30 mg/dl (Negative) mg/dL Urine Glucose (UA) Neg (Negative) mg/dL Urine Ketones Neg (Negative) mg/dL Urine Blood Mod (Negative) Urine Nitrite Neg (Negative) Urine Bilirubin Neg (Negative) Urine Urobilinogen 2.0 (<2.0) mg/dL Ur Leukocyte Esterase Tr (Negative) Urine WBC (Auto) 4.0 (0.0-6.0) /HPF Urine RBC (Auto) 139.0 (0.0-6.0) /HPF U Epithel Cells (Auto) 2.0 (0-13.0) /HPF Urine Mucus 1+ /HPF Urine HCG, Qual Negative (Negative) Urine Opiates Screen Urine Methadone Screen Ur Barbiturates Screen Ur Phencyclidine Scrn Ur Amphetamines Screen U Benzodiazepines Scrn Urine Cocaine Screen U Marijuana (THC) Screen Drugs of Abuse Note Blood Type - Radiology Data [facility] [address] [place] [address] Cat Scan Report Signed Patient: ZACH HAGAN MR #: [id number] : 1995 Acct:[id number] Age/Sex: 25 / F ADM Date: 06/22/20 Loc: ED Attending Dr: Ordering Physician: ISABEL RIOS Date of Service: 06/22/20 Procedure(s): CT abdomen pelvis w con Accession Number(s): [id number] cc: ISABEL RIOS CT ABDOMEN AND PELVIS WITH CONTRAST HISTORY: Pelvic pain for one day, nausea and vomiting COMPARISON: None. TECHNIQUE: Axial CT images were obtained through the abdomen and pelvis after 100 cc of IV contrast. Sagittal and coronal reformatted images. All CT scans at this location are performed using CT dose reduction for ALARA by means of automated exposure control. FINDINGS: CT ABDOMEN: Lung Bases: Clear. Liver: No significant abnormality. Biliary: No significant abnormality. Spleen: No significant abnormality. Unenlarged. Pancreas: No significant abnormality. Adrenals: No significant abnormality. Kidneys: No significant abnormality. Lymphatics: No lymphadenopathy. Vasculature: No significant abnormality. Bowel/Peritoneum: Mild circumferential thickening of a few mid small bowel loops in the left abdomen are suspected. There is also suggestion of mild circumferential thickening of the distal transverse colon. There is no evidence for obstruction, pneumatosis or free air. No significant ascites or fluid collection. The appendix is normal. CT PELVIS: : The uterus, adnexa and bladder are unremarkable. Mild bilateral ovarian vein varicosities are identified which could represent pelvic congestion syndrome. Osseous Structures: No significant abnormality. Additional Findings: None IMPRESSION: No acute inflammatory process is appreciated. Mild circumferential thickening of mid small bowel loops and possibly distal transverse colon are identified suggesting a nonspecific enteritis. Otherwise, unremarkable exam. Signer Name: Elie Vázquez Jr, MD Signed: 06/22/2020 8:59 AM Workstation Name: [id number] Transcribed By: [facility] Dictated By: ELIE VÁZQUEZ JR, MD Electronically Authenticated By: ELIE VÁZQUEZ JR, MD Signed Date/Time: 06/22/20 0859 DD/ 0854 TD/TT: [facility] [address] [place] [id number] Ultrasound Report Signed Patient: ZACH HAGAN MR #: [id number] : 1995 Acct:[id number] Age/Sex: 25 / F ADM Date: 06/22/20 Loc: ED Attending Dr: Ordering Physician: YOEL SMITH NP Date of Service: 06/22/20 Procedure(s): US transvaginal Accession Number(s): [id number] cc: YOEL SMITH NP ULTRASOUND PELVIS INDICATION / CLINICAL INFORMATION: pelvic pain. TECHNIQUE: Transabdominal and Transvaginal. Duplex Color Doppler used: Yes. COMPARISON: CT abdomen and pelvis with contrast dated 06/22/2020 FINDINGS: UTERUS: The uterus measures 8.8 4.6 x 5.1 cm and is in anteverted position. No focal uterine lesion. Endometrial thickness measures 8 mm. RIGHT ADNEXA: Simple elongated cyst of the right ovary measures 2.7 x 0.9 cm without color flow. Normal color Doppler blood flow. LEFT ADNEXA: No significant ovarian cyst or mass. Normal color Doppler blood flow. URINARY BLADDER: No significant abnormality. FREE FLUID: Minimal free fluid noted in the pelvis, likely physiologic. ADDITIONAL FINDINGS: None. IMPRESSION: 1. Elongated simple cyst right ovary measures 2.7 x 0.9 cm, and is likely physiologic. 2. No acute abnormality noted. Signer Name: Geovanni Lopez MD Signed: 06/22/2020 10:20 AM Workstation Name: [id number] Transcribed By: Dictated By: GEOVANNI LOPEZ Electronically Authenticated By: GEOVANNI LOPEZ Signed Date/Time: 06/22/20 1020 DD/ 1016 TD/TT: [facility] [address] [place] [address] Ultrasound Report Signed Patient: ZACH HAGAN MR #: [id number] : 1995 Acct:[id number] Age/Sex: 25 / F ADM Date: 06/22/20 Loc: ED Attending Dr: Ordering Physician: YOEL SMITH NP Date of Service: 06/22/20 Procedure(s): US pelvis duplex doppler comp Accession Number(s): [id number] cc: YOEL SMITH NP ULTRASOUND PELVIS INDICATION / CLINICAL INFORMATION: pelvic pain. TECHNIQUE: Transabdominal and Transvaginal. Duplex Color Doppler used: Yes. COMPARISON: CT abdomen and pelvis with contrast dated 06/22/2020 FINDINGS: UTERUS: The uterus measures 8.8 4.6 x 5.1 cm and is in anteverted position. No focal uterine lesion. Endometrial thickness measures 8 mm. RIGHT ADNEXA: Simple elongated cyst of the right ovary measures 2.7 x 0.9 cm without color flow. Normal color Doppler blood flow. LEFT ADNEXA: No significant ovarian cyst or mass. Normal color Doppler blood flow. URINARY BLADDER: No significant abnormality. FREE FLUID: Minimal free fluid noted in the pelvis, likely physiologic. ADDITIONAL FINDINGS: None. IMPRESSION: 1. Elongated simple cyst right ovary measures 2.7 x 0.9 cm, and is likely physiologic. 2. No acute abnormality noted. Signer Name: Geovanni Lopez MD Signed: 06/22/2020 10:20 AM Workstation Name: [id number] Transcribed By: Dictated By: GEOVANNI LOPEZ Electronically Authenticated By: GEOVANNI LOPEZ Signed Date/Time: 06/22/20 1020 DD/ 1016 TD/TT: - Medical Decision Making This is a 25-year-old female that presents with dysmenorrhea, right ovarian cyst, nausea vomiting, abdominal pain. Patient is stable and was examined by me. Labs obtained. UA obtained. CT of abdomen and pelvic ultrasound obtained and dictated by the radiologist. Patient is notified of the report with no questions noted by the patient. Vital signs are stable prior to discharge. Patient received medical treatment in the ED which patient stated symptoms her resovled and subsided. Was instructed note to operate any machinery due to possible drowsiness and stated someone will drive the patient home. A by mouth challenge has been obtained and patient tolerated well with no nausea vomiting. Patient w as also instructed to Follow-up with a primary care and OBGYN doctor in 3-5 days or if symptoms worsen and continue return to emergency room as soon as possible. At time of discharge, the patient does not seem toxic or ill in appearance. No acute signs of distress noted. Patient agrees to discharge treatment plan of care. No further questions noted by the patient. - Differential Diagnosis Appendicitis, ovarian torsion, ovarian abscess, gastritis, dysmenorrhea Critical care attestation.: If time is entered above; I have spent that time in minutes in the direct care of this critically ill patient, excluding procedure time. ED Disposition Clinical Impression: Dysmenorrhea, Ovarian cyst, right Nausea & vomiting Qualifiers: Vomiting type: unspecified Vomiting Intractability: non-intractable Qualified Code(s): R11.2 - Nausea with vomiting, unspecified Abdominal pain Qualifiers: Abdominal location: lower abdomen, unspecified Qualified Code(s): R10.30 - Lower abdominal pain, unspecified Disposition: DC- TO HOME OR SELFCARE Is pt being admited?: No Does the pt Need Aspirin: No Condition: Stable Instructions: Abdominal Pain (ED), Nausea and Vomiting, Adult, Ovarian Cyst, [id number], Abdominal Pain, Adult, [id number] Additional Instructions: Follow-up with a primary care and OBGYN doctor in 3-5 days or if symptoms worsen and continue return to emergency room as soon as possible. Prescriptions: Naproxen 500 mg PO Q12H PRN #12 tablet PRN Reason: Pain , Severe (7-10) Ondansetron [Zofran Odt] 4 mg PO Q8HR PRN #12 tab.rapdis PRN Reason: Nausea Referrals: PRIMARY CAREMD [Primary Care Provider] - 3-5 Days ARIS HENDERSON MD [Staff Physician] - 3-5 Days [facility] [Provider Group] - 3-5 Days [facility] [Provider Group] - 3-5 Days Forms: Work/School Release Form(ED) Time of Disposition: 10:33
--- NOTE | 2020-06-22 09:03 | Cat Scan Report ---
CT ABDOMEN AND PELVIS WITH CONTRAST HISTORY: Pelvic pain for one day, nausea and vomiting COMPARISON: None. TECHNIQUE: Axial CT images were obtained through the abdomen and pelvis after 100 cc of IV contrast. Sagittal and coronal reformatted images. All CT scans at this location are performed using CT dose re duction for ALARA by means of automated exposure control. FINDINGS: CT ABDOMEN: Lung Bases: Clear. Liver: No significant abnormality. Biliary: No significant abnormality. Spleen: No significant abnormality. Unenlarged. Pancreas: No significant abnormality. Adrenals: No significant abnormality. Kidneys: No significant abnormality. Lymphatics: No lymphadenopathy. Vasculature: No significant abnormality. Bowel/Peritoneum: Mild circumferential thickening of a few mid small bowel loops in the left abdomen are suspected. There is also suggestion of mild circumferential thickening of the distal transverse c olon. There is no evidence for obstruction, pneumatosis or free air. No significant ascites or fluid collection. The appendix is normal. CT PELVIS: : The uterus, adnexa and bladder are unremarkable. Mild bilateral ovarian vein varicosities are evette ntified which could represent pelvic congestion syndrome. Osseous Structures: No significant abnormality. Additional Findings: None IMPRESSION: No acute inflammatory process is appreciated. Mild circumferential thickening of mid small bowel loops and possibly distal transverse colon are evette ntified suggesting a nonspecific enteritis. Otherwise, unremarkable exam. Signer Name: Elie Vázquez Jr, MD Signed: 06/22/2020 8:59 AM Workstation Name: [id number]
--- NOTE | 2020-06-22 10:25 | Ultrasound Report ---
ULTRASOUND PELVIS INDICATION / CLINICAL INFORMATION: pelvic pain. TECHNIQUE: Transabdominal and Transvaginal. Duplex Color Doppler used: Yes. COMPARISON: CT abdomen and pelvis with contrast dated 06/22/2020 FINDINGS: UTERUS: The uterus measures 8.8 4.6 x 5.1 cm and is in anteverted position. No focal uterine lesion. Endometrial thickness measures 8 mm. RIGHT ADNEXA: Simple elongated cyst of the right ovary measures 2.7 x 0.9 cm without color flow. Norm al color Doppler blood flow. LEFT ADNEXA: No significant ovarian cyst or mass. Normal color Doppler blood flow. URINARY BLADDER: No significant abnormality. FREE FLUID: Minimal free fluid noted in the pelvis, likely physiologic. ADDITIONAL FINDINGS: None. IMPRESSION: 1. Elongated simple cyst right ovary measures 2.7 x 0.9 cm, and is likely physiologic. 2. No acute abnormality noted. Signer Name: Geovanni Goldberg MD Signed: 06/22/2020 10:20 AM Workstation Name: [id number]
[2020-06-22 10:57] VITALS: BP 106/70
== END 2020-06-22 10:57 | disposition home or self-care (01) ==
LOC: ED 04:21
DX: N94.6 Dysmenorrhea, unspecified (principal); N83.201 Unspecified ovarian cyst, right side; R11.2 Nausea with vomiting, unspecified; R10.30 Lower abdominal pain, unspecified; J45.909 Unspecified asthma, uncomplicated; Z79.899 Other long term (current) drug therapy
CPT/HCPCS: 36415; 74177; 76830; 80053; 80307; 81001; 81025; 83690; 84702; 85025; 86900; 86901; 93975; 96361; 96372; 96374; 96375; 99284; J2270; J2405; J2765; J7030; Q9967; Q0162

== ENCOUNTER 2020-08-25 19:23 | Emergency (ER) | payer SELFPAY ==
[2020-08-25 20:37] VITALS: BP 128/76
[2020-08-26 00:08] LABS: Bilirubin,Urine NEG (Negative); Blood,Urine MOD (Negative); Color,Urine Yellow (Yellow); Mucus,Urine FEW /HPF
[2020-08-26 00:14] LABS: HCG Qualitative,Urine Negative (Negative)
== END 2020-08-26 00:45 ==
LOC: ED 19:23
DX: R11.10 Vomiting, unspecified (principal); M54.9 Dorsalgia, unspecified; Z53.21 Procedure and treatment not carried out due to patient leaving prior to being seen by health care provider
CPT/HCPCS: 81001; 81025